=== PATIENT | male | born 1985 | race Caucasian/White ===

== ENCOUNTER 2019-11-17 15:43 | Emergency (ER) | payer OTHER ==
[~2019-11-17] VITALS: Ht 182.9 cm; Wt 67.1 kg
[2019-11-17] MEDS ORDERED: ZITHROMAX500 MG PO (18:45)
== END 2019-11-17 19:53 | disposition home or self-care (01) ==
LOC: ER 15:43
DX: R50.9 Fever, unspecified (principal); R51 Headache; Z03.818 Encounter for observation for suspected exposure to other biological agents ruled out